=== PATIENT | female | born 1980 | race Caucasian/White ===

== ENCOUNTER 2018-08-13 11:32 | Outpatient (CLI) | payer MEDICAID ==
--- NOTE | 2018-08-14 12:57 | XRAY Report ---
Reason: OLD DISRUPTION OF LIGAMENT OF LT KN, KNEE JT PAIN Procedure Date: 08/13/2018 Accession Number: [id number] / [id number] Procedure: XR - Knee 4 View BILAT CPT Code: FULL RESULT: EXAM: BILATERAL KNEE RADIOGRAPHY EXAM DATE: 08/13/2018 11:53 AM. CLINICAL HISTORY: Pain. COMPARISON: None. TECHNIQUE: Each knee, 4 views, including oblique views. FINDINGS: Bones: Normal. No fractures or bone lesions. Joints: Normal. No effusion. No subluxations. Soft Tissues: Unremarkable. IMPRESSION: Normal knee radiography. [facility]
== END 2018-08-13 11:33 | disposition home or self-care (01) ==
LOC: DI 11:32
PROVIDERS: ATTEND Physician Assistant Medical
DX: M25.561 Pain in right knee (principal); M25.562 Pain in left knee

== ENCOUNTER 2018-08-30 09:54 | Outpatient (CLI) | payer MEDICAID ==
--- NOTE | 2018-08-31 17:17 | MRI Report ---
Reason: KNEE JOINT PAIN GREATER THAN THREE MONTHS,BILATERA Procedure Date: 08/30/2018 Accession Number: [id number] / [id number] Procedure: MRI - Knee LT W/O CPT Code: FULL RESULT: EXAM: LEFT KNEE MRI WITHOUT CONTRAST EXAM DATE: 08/30/2018 10:35 AM. CLINICAL HISTORY: Knee joint pain greater than three months, bilateral. COMPARISON: Radiographs 08/13/2018. TECHNIQUE: Multiplanar, multisequence T1-weighted and fluid-sensitive sequences of the knee without contrast. Other: None. FINDINGS: Bones: No fractures or subluxations. No marrow edema. No bone lesions. Articular Cartilage: Shallow partial-thickness cartilage loss at the central aspect medial compartment and central to posterior aspect lateral tibial plateau. Shallow partial-thickness loss and deep partial-thickness fissuring/tearing at the lateral patellar facet Medial Meniscus: Ill-defined fluid sensitive hyperintense signal along the posterior margin of the posterior horn at the junction of the capsule. No discrete fluid-filled tear. Lateral Meniscus: The lateral meniscus is intact. Cruciate Ligaments: The anterior and posterior cruciate ligaments are intact. Collateral Ligaments: The medial collateral and lateral collateral ligamentous structures are intact. Tendons: Minimal patellar tendinopathy. Quadriceps, popliteus, and semimembranosus tendons unremarkable. Musculature: No edema or fatty atrophy. Other: No effusion. No loose bodies. Minimal popliteal cyst with leak. 1.9 cm lobulated ganglion over the posterior aspect medial collateral ligament proximally. The medial and lateral retinacula are intact. Minimal subcutaneous edema anteriorly. Fat pads unremarkable. IMPRESSION: 1. Reactive edema versus sprain at the meniscocapsular junction, posterior horn medial meniscus. 2. Minimal patellar tendinopathy. 3. Minimal popliteal cyst with leak. 4. 1.9 cm ganglion adjacent to the medial collateral ligament. 5. Minimal tricompartment cartilage loss. Deep partial-thickness fissuring/tearing at the lateral patellar facet. [facility]
== END 2018-08-30 09:55 | disposition home or self-care (01) ==
LOC: DI 09:54
PROVIDERS: ATTEND Orthopaedic Surgery Sports Medicine
DX: M71.22 Synovial cyst of popliteal space [Baker], left knee (principal); M67.462 Ganglion, left knee; M23.92 Unspecified internal derangement of left knee

== ENCOUNTER 2018-09-13 13:33 | Outpatient (CLI) | payer MEDICAID ==
--- NOTE | 2018-09-16 09:36 | Mammography Report ---
Reason: SCREENING MAMMO Procedure Date: 09/13/2018 Accession Number: [id number] / [id number] Procedure: AKIN - Screening Mammo Dig Bilat CPT Code: FULL RESULT: EXAM: Screening Mammo Dig Bilat DATE: 09/13/2018 2:50 PM CLINICAL HISTORY: Baseline screening mammogram TECHNIQUE: (B) - Bilateral CC and MLO views were obtained. COMPARISON: None PARENCHYMAL PATTERN: (D) - The breasts demonstrate heterogeneously dense fibroglandular parenchyma bilaterally. FINDINGS: There are no suspicious masses, calcifications, skin thickening, or areas of distortion. IMPRESSION: Negative examination. BI-RADS category 1. RECOMMENDATION: (ANNUAL) - Recommend routine annual screening mammography. BI-RADS CATEGORY: (1) - Negative. STANDARD QUALIFYING STATEMENTS: 1. This examination was not reviewed with the aid of Computer-Aided Detection (CAD). 2. A negative or benign imaging report should not preclude biopsy if clinically suspicious findings are present. 3. Dense breasts may obscure an underlying neoplasm. 4. This examination was reviewed without the aid of 3D breast imaging (tomosynthesis).
== END 2018-09-13 13:34 | disposition home or self-care (01) ==
LOC: DI 13:33
PROVIDERS: ATTEND Physician Assistant Medical
DX: Z12.31 Encounter for screening mammogram for malignant neoplasm of breast (principal)
CPT/HCPCS: 77067